=== PATIENT | female | born 2005 | race Caucasian/White ===

== ENCOUNTER 2024-06-08 19:31 | Emergency (ER) | payer MEDICAID ==
[~2024-06-08] VITALS: Ht 144.8 cm; Wt 51.7 kg
[2024-06-08 21:27] LABS: BASOPHILS # (AUTO) 0.1 K/uL (0.0-0.2); BASOPHILS % (AUTO) 0.9 % (0.0-2.0); EOSINOPHILS # (AUTO) 0.3 K/uL (0.0-0.7); HEMATOCRIT 38 % (33-45); HEMOGLOBIN 12.8 g/dL (11.5-14.8); LYMPHOCYTES # (AUTO) 2.2 K/uL (0.8-4.8); LYMPHOCYTES % (AUTO) 32.9 % (20.0-44.0); MEAN CORPUSCULAR HEMOGLOBIN 28 PG (26.0-33.0); MEAN CORPUSCULAR HGB CONC 34 g/dl (31.0-36.0); MEAN CORPUSCULAR VOLUME 84 fL (82-100); MONOCYTES # (AUTO) 0.4 K/uL (0.1-1.30); MONOCYTES % (AUTO) 6.7 % (2.0-12.0); NEUTROPHILS # (AUTO) 3.7 K/uL (1.8-8.9); NEUTROPHILS % (AUTO) 54.5 % (43.0-81.0); PLATELET COUNT (AUTO) 262 K/uL (150-450); RED BLOOD CELL COUNT(AUTO) 4.56 MIL/uL (4.0-5.2); RED CELL DISTRIBUTION WIDTH 13.6 % (11.5-15.0); WHITE BLOOD COUNT (AUTO) 6.7 K/uL (4.3-11.0)
[2024-06-08 21:32] LABS: CALCIUM, SERUM 9.2 mg/dL (8.5-10.1); CARBON DIOXIDE 28 mmol/L (21-32); CHLORIDE 104 mmol/L (98-107); CREATININE 0.7 mg/dL (0.6-1.3); GLUCOSE 92 mg/dL (74-106); POTASSIUM 3.6 mmol/L (3.5-5.1); SODIUM SERUM 137 mmol/L (136-145); UREA NITROGEN, BLOOD 12 mg/dL (7-18)
[2024-06-08] MEDS: ASPIRIN 81 MG TAB.CHEW PO ONE (21:32)
[2024-06-08 21:35] LABS: PREGNANCY TEST URINE QUAL NEGATIVE (NEGATIVE)
[2024-06-08 21:38] LABS: ALANINE AMINOTRANSFERASE 14 U/L (12-78); ALBUMIN 3.9 g/dL (3.4-5.0); ALKALINE PHOSPHATASE 81 U/L (46-116); ASPARTATE AMINOTRANSFERASE 14 U/L (15-37); BILIRUBIN,TOTAL 0.3 mg/dL (0.2-1.0); TOTAL PROTEIN, SERUM 7.6 g/dL (6.4-8.2)
[2024-06-08 22:16] VITALS: BP 103/87; TEMP 98.6; O2SAT 96
== END 2024-06-08 22:17 | disposition home or self-care (01) ==
LOC: ER 19:34
DX: R07.9 Chest pain, unspecified (principal)
CPT/HCPCS: 36415; 71045-TC; 80048-TC; 80076-TC; 84484-TC; 84703-TC; 85025-TC

== ENCOUNTER 2025-01-30 17:21 | Emergency (ER) | payer MEDICAID ==
[~2025-01-30] VITALS: Ht 152.4 cm; Wt 59.0 kg
[2025-01-30 17:40] VITALS: BP 111/65; TEMP 98.1
[2025-01-30] MEDS ORDERED: CARB15DR12 EACH EAR (18:05)
[2025-01-30 18:39] VITALS: O2SAT 99
== END 2025-01-30 18:30 | disposition home or self-care (01) ==
LOC: ER 17:26
DX: H61.23 Impacted cerumen, bilateral (principal); Z91.048 Other nonmedicinal substance allergy status